=== PATIENT | male | born 1980 | race Caucasian/White ===

== ENCOUNTER 2019-04-01 20:47 | Emergency (ER) | payer MEDICAID ==
[~2019-04-01] VITALS: Ht 180.3 cm; Wt 65.8 kg
[2019-04-01 21:48] VITALS: BP 125/80
[2019-04-01] MEDS ORDERED: ONDANSETRON ODT 4 MG TAB PO ONE (22:30)
[2019-04-01] MEDS ORDERED: MORPHINE SULFATE 10 MG/ML INJ 1ML SDV IM ONE (22:30)
== END 2019-04-01 23:38 | disposition home or self-care (01) ==
LOC: ER 20:53
DX: S42.022A Displaced fracture of shaft of left clavicle, initial encounter for closed fracture (principal); S20.219A Contusion of unspecified front wall of thorax, initial encounter; S43.102A Unspecified dislocation of left acromioclavicular joint, initial encounter; V86.56XA Driver of dirt bike or motor/cross bike injured in nontraffic accident, initial encounter; Y93.55 Activity, bike riding; Y92.410 Unspecified street and highway as the place of occurrence of the external cause; Y99.8 Other external cause status
CPT/HCPCS: 73000; 73030; 96372; 99283; J2270; Q0162